=== PATIENT | female | born 1965 | race Caucasian/White ===

== ENCOUNTER 2017-07-04 12:55 | Outpatient (CLI) | payer OTHER | END 2017-07-04 12:56 | disposition home or self-care (01) | LOC: BICRAD 12:55 | PROVIDERS: ATTEND Internal Medicine | DX: Z02.71 Encounter for disability determination (principal); M17.12 Unilateral primary osteoarthritis, left knee; M43.16 Spondylolisthesis, lumbar region | CPT/HCPCS: 71046; 72100 ==

== ENCOUNTER 2017-09-11 19:10 | Emergency (ER) | payer OTHER | END 2017-09-11 21:01 | disposition home or self-care (01) | LOC: ERS 19:10 | DX: G56.03 Carpal tunnel syndrome, bilateral upper limbs (principal); I10 Essential (primary) hypertension; M19.90 Unspecified osteoarthritis, unspecified site; E78.5 Hyperlipidemia, unspecified; F17.210 Nicotine dependence, cigarettes, uncomplicated; Z79.899 Other long term (current) drug therapy | CPT/HCPCS: 36416; 99284 ==

== ENCOUNTER 2017-11-12 19:51 | Observation (INO) | payer OTHER, SELFPAY ==
[2017-11-12 20:23] LABS: #Eosinphils 0.2 thou/uL (0.0-0.7); #Lymphocytes 2.2 thou/uL (1.20-3.40); #Monocytes 0.4 thou/uL (0.11-0.59); #Neutrophils 5.8 thou/uL (1.40-6.50); %Basophils 0.5 % (0.0-1.0); %Eosinophils 2.2 % (0.0-10.0); %Lymphocytes 25.8 % (21.0-51.0); %Monocytes 4.7 % (0.0-10.0); %Neutrophils 66.7 % (42.0-75.0); Hemoglobin 15.2 g/dL (12.0-16.0); Mean Corpuscular HGB CONC 34.9 g/dL (32.0-36.0); Mean Corpuscular Hemoglobin 30.1 pg (27.0-31.0); Mean Corpuscular Volume 86.4 fl (81.0-99.0); Mean Platelet Volume 8.3 fL (7.4-10.4); Platelet Count 208 thou/uL (130-400); RBC Distribution Width 12.7 % (11.5-14.5); Red Blood Cell (RBC) Count 5.04 mill/uL (4.20-5.40); White Blood Cell (WBC) Count 8.7 thou/uL (4.8-10.8)
[2017-11-12 20:47] LABS: CKMB 1.9 ng/mL (0-6.6); Troponin I Less than 0.010 ng/mL (< 0.028)
[2017-11-12] MEDS ORDERED: Nitroglycerin 2% Ointment 1 INCH/1 GM Packet ONE (20:48)
[2017-11-12 20:59] LABS: ALT (SGPT) 27 U/L (8-55); AST (SGOT) 20 U/L (5-34); Albumin 4.7 g/dL (3.5-5.0); Alkaline Phosphatase 52 U/L (40-150); Anion Gap 12 mmol/L (10-20); BUN (Urea Nitrogen) 19 mg/dL (9.8-20.1); Bilirubin, Total 0.3 mg/dL (0.2-1.2); Calc. Creatinine Clearance 0 mL/min (70-130); Calcium 9.8 mg/dL (7.8-10.44); Carbon Dioxide 26 mmol/L (22-29); Chloride 105 mmol/L (98-107); Estimated GFR-MDRD 62; Globulin 2.6 g/dL (2.4-3.5); Glucose 132 mg/dL (70-105); Lipase 23 U/L (8-78); Magnesium 2.4 mg/dL (1.6-2.6); Potassium 3.6 mmol/L (3.5-5.1); Protein, Total 7.3 g/dL (6.0-8.3); Sodium 139 mmol/L (136-145)
--- NOTE | 2017-11-12 21:11 | RAD ---
AP CHEST: History: Chest pain, shortness of breath. Date: 11-12-17 Comparison: 02-21-16 FINDINGS: AP chest demonstrates some elevation of the left hemidiaphragm. The lungs are well aerated. No eviden ce of acute intrathoracic abnormality seen. No evidence of effusions, pneumonia, or pneumothorax seen . IMPRESSION: Elevated left hemidiaphragm, otherwise unremarkable AP chest. POS: [facility]
[2017-11-12] MEDS ORDERED: Azithromycin 250 MG TAB ONE ×2 (21:19→21:20)
[2017-11-12] MEDS ORDERED: methylPREDNISolone Sod Succ/PF 125 MG/2 ML VIAL ONE (21:20)
[2017-11-12 21:40] LABS: Bilirubin Negative (Negative); Blood, Urine Negative (Negative); Clarity CLEAR (Clear); Glucose, Urine (Dipstick) Negative (Negative); Leukocyte Negative (Negative); Nitrite Negative (Negative); Protein, Urine (Dipstick) Negative (Neg-Trace); Urobilinogen 0.2 mg/dL (0.2-1.0); pH, Urine 6.5 (5.0-9.0)
[2017-11-12 21:50] LABS: Hemoglobin A1c 5.5 % (4.0-6.0)
[2017-11-12 23:04] VITALS: BMI 41.8
[2017-11-12 23:41] LABS: Troponin I 0.012 ng/mL (< 0.028)
[2017-11-13] MEDS ORDERED: Acetaminophen 325 MG TAB PO PRN (02:09)
[2017-11-13 02:42] LABS: Troponin I Less than 0.010 ng/mL (< 0.028)
[2017-11-13 04:49] LABS: #Lymphocytes 0.9 thou/uL (1.20-3.40); #Monocytes 0.1 thou/uL (0.11-0.59); #Neutrophils 7.1 thou/uL (1.40-6.50); %Basophils 0.2 % (0.0-1.0); %Eosinophils 0.5 % (0.0-10.0); %Lymphocytes 10.5 % (21.0-51.0); %Monocytes 1.2 % (0.0-10.0); %Neutrophils 87.6 % (42.0-75.0); Hemoglobin 13.8 g/dL (12.0-16.0); Mean Corpuscular HGB CONC 34.8 g/dL (32.0-36.0); Mean Corpuscular Hemoglobin 30.3 pg (27.0-31.0); Mean Corpuscular Volume 87.1 fl (81.0-99.0); Mean Platelet Volume 8.8 fL (7.4-10.4); Platelet Count 196 thou/uL (130-400); RBC Distribution Width 12.7 % (11.5-14.5); Red Blood Cell (RBC) Count 4.54 mill/uL (4.20-5.40); White Blood Cell (WBC) Count 8.1 thou/uL (4.8-10.8)
--- NOTE | 2017-11-13 04:49 | HP ---
PRIMARY CARE PHYSICIAN: [facility]. HISTORY OF PRESENT ILLNESS: Patient is a very pleasant 52-year-old female with a past medical histor y of hypertension, hyperlipidemia, and smoking, who presents to the ER with complaints of chest pain. The patient states that she has been having this chest pain for the past few days on and off. Julio jennifer, today she started having worsening chest pain. She described it as like tightness around her ch est area. The patient denies any radiation to her upper extremities or neck area. The patient denie s any nausea, vomiting, or diaphoresis. The patient also denies any shortness of breath. The patien t also noticed that she has been having increased ankle swelling for this past few days. The patient states that she has been compliant with a low-salt diet. Denies any orthopnea; however, states that at times she is positive for PND. PAST MEDICAL HISTORY: 1. History of hypertension. 2. Hyperlipidemia. 3. Obesity. 4. Hypothyroidism. 5. Chronic obstructive pulmonary disease. PAST SURGICAL HISTORY: She has not had any surgeries. SOCIAL HISTORY: She smokes a pack and a half a day. No alcohol or drug use. FAMILY HISTORY: Father at the age of 54 with heart attack. Mother is doing pretty well. ALLERGIES: She has got no known allergies. MEDICATIONS: As the following: She takes albuterol 2 puffs q.4 hours p.r.n., Mobic 50 mg daily, met oprolol 25 mg daily, Norvasc 5 mg daily, QVAR 8.7 mg b.i.d., gabapentin 300 mg b.i.d., levothyroxine 25 mcg daily, lisinopril/hydrochlorothiazide 20/12.5 one p.o. daily, simvastatin 20 mg daily, and anahy tropium 2 inhalations daily. REVIEW OF SYSTEMS: A 12-point review of systems all negative except for the ones mentioned in the HP I. LABORATORY DATA: As the following, sodium of 139, potassium of 3.6, BUN of 19, creatinine 0.84. Tro ponin x3 are negative. BNP is 43.7. Hemoglobin A1c is 5.5. WBC of 8.7, hemoglobin of 14.2, hematoc rit of 43.6. EKG appears to be normal. Chest x-ray indicates elevated left hemidiaphragm, otherwise normal. PHYSICAL EXAMINATION: VITAL SIGNS: Vital signs are as following, 97.7, 62, 124/65, 20, 94% on room air, 172/77. GENERAL: The patient is awake, alert, oriented x3, does not appear in any distress. HEENT: Normocephalic, atraumatic. NECK: No lymphadenopathy noted. CARDIOVASCULAR: S1, S2 present. No murmurs, rubs, or gallops. LUNGS: Clear to auscultation. No rhonchi or wheezes noted. ABDOMEN: Obese, bowel sounds are present x2. No hepatomegaly or splenomegaly appreciated. EXTREMITIES: She does have mild 1+ lower extremity ankle edema. SKIN: No lesions or rashes noted. NEUROLOGIC: No focal deficits. The patient is awake, alert, and oriented. PSYCHIATRIC: Affect appears to be normal. ASSESSMENT AND PLAN: The patient is a very pleasant 52-year-old female who presents to the hospital for chest pain. 1. Chest pain, rule out acute coronary syndrome. The patient has several risk factors including fam jeremy, obesity, hypertension, and smoking history. We will do a stress test in the morning. Troponins x3 are negative. BNP is normal. Stress test is negative. May discharge the patient home. We will check a lipid panel, hemoglobin A1c was 5.5. 2. Hypertension. We will continue the patient's home medications. May need titrating blood pressur e medications up. 3. Smoking cessation. Patient educated on stopping to smoke. Patient states that she is not ready yet. She refused to wear a patch while in the hospital. 4. Hyperlipidemia. We will continue the patient's home medications and will check a lipid panel in the morning.
[2017-11-13 05:06] LABS: Anion Gap 12 mmol/L (10-20); BUN (Urea Nitrogen) 18 mg/dL (9.8-20.1); Calc. Creatinine Clearance 132 mL/min (70-130); Calcium 9.4 mg/dL (7.8-10.44); Carbon Dioxide 23 mmol/L (22-29); Cardiac Risk 3.8 (Less than 4.5); Chloride 109 mmol/L (98-107); Cholesterol 167 mg/dl (< 200 Desired); Estimated GFR-MDRD 69; Glucose 175 mg/dL (70-105); HDL Cholesterol 44 mg/dL (>60 Neg Risk); LDL Cholesterol, Calculated 107 mg/dL; Potassium 3.8 mmol/L (3.5-5.1); Sodium 140 mmol/L (136-145); Triglycerides 82 mg/dL (Less than 150)
[2017-11-13] MEDS: Ipratropium Bromide 2.5 ml Neb NEB SCH ×4 (07:35→23:39)
[2017-11-13] MEDS: Mometasone 100 MCG HFA INHALER INH SCH ×2 (07:38→19:55)
[2017-11-13] MEDS: Aspirin 325 MG TAB PO SCH (08:54)
[2017-11-13] MEDS: Enoxaparin Sodium 40 MG/0.4 ML SYRINGE SC SCH (08:54)
[2017-11-13] MEDS: Amlodipine 5 MG TAB PO SCH (08:54)
[2017-11-13] MEDS: Lisinopril/Hydrochlorothiazide 20 mg/12.5 mg Tablet PO SCH (08:54)
[2017-11-13] MEDS: Gabapentin 300 MG CAP PO SCH ×2 (08:54→20:59)
[2017-11-13] MEDS: Levothyroxine Sodium 25 MCG TAB PO SCH (08:55)
[2017-11-13] MEDS ORDERED: Regadenoson 0.4 MG/5 ML SYRINGE ONE (14:01)
[2017-11-13] MEDS ORDERED: Simvastatin 20 MG TAB PO SCH (21:00)
[2017-11-14] MEDS: Ipratropium Bromide 2.5 ml Neb NEB SCH (07:17)
[2017-11-14] MEDS: Mometasone 100 MCG HFA INHALER INH SCH (07:19)
[2017-11-14] MEDS: Enoxaparin Sodium 40 MG/0.4 ML SYRINGE SC SCH (08:10)
[2017-11-14] MEDS: Gabapentin 300 MG CAP PO SCH (08:10)
[2017-11-14] MEDS: Lisinopril/Hydrochlorothiazide 20 mg/12.5 mg Tablet PO SCH (08:10)
[2017-11-14] MEDS: Levothyroxine Sodium 25 MCG TAB PO SCH (08:10)
[2017-11-14] MEDS: Amlodipine 5 MG TAB PO SCH (08:11)
[2017-11-14] MEDS: Aspirin 325 MG TAB PO SCH (08:11)
--- NOTE | 2017-11-14 11:36 | NM ---
MYOCARDIAL PERFUSION EVALUATION: INDICATION: Chest pain, 52-year-old female. Please reference the stress EKG portion of this exam through the division of cardiology for further d etails. FINDINGS: There is no significant fixed or reversible defect of the left ventricular arita. A mild degree of ph ysiologic apical thinning is suggested. Gated imaging reveals appropriate wall motion and contractili ty with a normal LVEF calculated above 70%. IMPRESSION: 1. No significant ischemia or scar. 2. Normal left ventricular systolic function. POS: [facility]
[2017-11-14 11:46] VITALS: BP 146/70; TEMP 97.8
--- NOTE | 2017-11-14 14:23 | DIS ---
CONDITION AT THE TIME OF DISCHARGE: Stable and improved. DISCHARGE DIAGNOSES: 1. Chest pain, likely gastroesophageal reflux disease. Noncardiac. ACS ruled out. 2. Hypertension. 3. Dyslipidemia. 4. Morbid obesity with BMI of 41.8. 5. Hypothyroidism. 6. Chronic obstructive pulmonary disease. 7. Tobacco abuse. DISCHARGE MEDICATIONS: Remain the same as admission medication. Please see admission H&P for furthe r details as follows; Spiriva, Zocor, Lopressor 25 b.i.d., lisinopril/hydrochlorothiazide 20/12.5 mg daily, Synthroid 25 mcg daily, Neurontin 300 b.i.d. Qvar b.i.d., amlodipine 5 mg daily, albuterol as needed. PROCEDURES DONE IN THE HOSPITAL: Nuclear medicine stress test, which is unremarkable. There is no s car or active ischemia. Normal left ventricular systolic function at 70%. CONSULTATIONS INHOUSE: None. PRIMARY CARE PHYSICIAN: Dr. Ra Aguilera HISTORY OF PRESENT ILLNESS: Ms. Vee is a 52-year-old female with past medical history of hypertens ion, dyslipidemia, continued tobacco abuse, COPD, who came to the emergency room with complaints of c hest pain. According to her daughter her blood pressure was quite elevated upon presentation for the EMS. Initial assessment included a 12-lead EKG and cardiac enzymes for chest pain workup and it was unremarkable. Her chest x-ray showed elevated left hemidiaphragm, otherwise normal. She was admitt ed for further risk stratification. Please see admission history and physical for further details. HOSPITAL COURSE: The patient underwent a 2-day stress test because of the body habitus and it was ne gative. She remained hemodynamically stable and her blood pressure was under good control. On the day of discharge, she is still having some issues with on and off chest pain, but I have reass ured her that this is a noncardiac pain. She might benefit from outpatient gastroenterology workup f or possible acid reflux and esophagitis and gastritis. Strongly advised for tobacco cessation is pro vided and for lifestyle modification and she verbalized understanding. She is encouraged to monitor blood pressure at home. She was seen and examined prior to discharge at this time. PHYSICAL EXAMINATION: VITAL SIGNS: Temperature 97.8, pulse of 61, respirations 18, saturating 94% on room air, blood press ure 146/70. GENERAL: No acute distress, awake, alert, oriented x3. Daughter is present in the room. CHEST: Clear to auscultation without any wheezing, rales or rhonchi. CARDIOVASCULAR: Rhythm is regular without any murmur, rubs or gallops. ABDOMEN: Obese, soft, nontender, nondistended. No epigastric tenderness, no right upper quadrant te nderness. Morbidly obese. EXTREMITIES: Free of any cyanosis, clubbing, or edema. LABORATORY DATA: Troponin negative x3. BNP normal. Lipid panel normal. Hemoglobin A1c 5.5. Urina lysis is unremarkable. CBC unremarkable. D-dimer less than 0.27. Serum chemistries unremarkable ex cept for blood sugar of 175. She is instructed to follow up with primary care physician in 5-7 days. All questions were answered and discharge plan was discussed with the patient and her daughter and they verbalized understanding.
== END 2017-11-14 14:00 | disposition home or self-care (01) ==
LOC: ERS 19:51 → 2SW 21:52
PROVIDERS: ADMIT Internal Medicine; ATTEND Internal Medicine
DX: R07.89 Other chest pain (principal); I10 Essential (primary) hypertension; E78.5 Hyperlipidemia, unspecified; E66.01 Morbid (severe) obesity due to excess calories; E03.9 Hypothyroidism, unspecified; J44.9 Chronic obstructive pulmonary disease, unspecified; F17.210 Nicotine dependence, cigarettes, uncomplicated; Z68.42 Body mass index [BMI] 45.0-49.9, adult; Z79.899 Other long term (current) drug therapy
CPT/HCPCS: 36415; 71045; 78452; 80048; 80053; 80061; 81003; 82553; 83036; 83690; 83735; 83880; 84484; 85025; 85379; 93005; 93017; 94760; 96372; 96374; A4216; A9500; G0378; J1650; J2785; J2930; J7620; J7644

== ENCOUNTER 2018-01-13 19:56 | Emergency (ER) | payer SELFPAY ==
[2018-01-13] MEDS ORDERED: Albuterol Sulfate 2.5 mg/0.5 ml Neb ONE ×2 (20:44)
[2018-01-13] MEDS ORDERED: Albuterol Sulfate 2.5 mg/3 ml Neb ONE ×2 (20:44)
--- NOTE | 2018-01-13 21:01 | RAD ---
TWO VIEW CHEST: 01/13/18 HISTORY: Shortness of breath. Dyspnea. COMPARISON: 12/05/16. Lungs appear clear. No infiltrate seen. Heart and mediastinum unremarkable. IMPRESSION: No acute process. POS: [facility]
[2018-01-13 21:12] LABS: CKMB 1.8 ng/mL (0-6.6); Troponin I Less than 0.010 ng/mL (< 0.028)
[2018-01-13] MEDS ORDERED: methylPREDNISolone Sod Succ/PF 125 MG/2 ML VIAL ONE (21:32)
[2018-01-13 21:44] LABS: Bilirubin Negative (Negative); Blood, Urine Negative (Negative); Clarity CLEAR (Clear); Glucose, Urine (Dipstick) Negative (Negative); Leukocyte Negative (Negative); Nitrite Negative (Negative); Protein, Urine (Dipstick) Negative (Neg-Trace); Specific Gravity, Urine 1.003 (1.002-1.036); Urobilinogen 0.2 mg/dL (0.2-1.0); pH, Urine 6.5 (5.0-9.0)
--- NOTE | 2018-01-13 22:15 | ULT ---
BILATERAL LOWER EXTREMITY VENOUS DUPLEX EXAM: 01/13/18 INDICATION: Bilateral lower extremity pain and edema. Shortness of breath. Deep veins of both lower extremities evaluated with color doppler with spectral analysis and compress ion. Deep veins of both lower extremities show normal blood flow and compression. No evidence of DVT identified in either leg. IMPRESSION: Negative bilateral lower extremity venous duplex study. POS: [facility]
[2018-01-13 22:20] LABS: #Eosinphils 0.2 thou/uL (0.0-0.7); #Monocytes 0.5 thou/uL (0.11-0.59); #Neutrophils 5.2 thou/uL (1.40-6.50); %Basophils 0.3 % (0.0-1.0); %Eosinophils 1.9 % (0.0-10.0); %Lymphocytes 33.5 % (21.0-51.0); %Monocytes 5.8 % (0.0-10.0); %Neutrophils 58.5 % (42.0-75.0); Hemoglobin 14.5 g/dL (12.0-16.0); Mean Corpuscular HGB CONC 35.2 g/dL (32.0-36.0); Mean Corpuscular Hemoglobin 30.2 pg (27.0-31.0); Mean Platelet Volume 8.4 fL (7.4-10.4); Platelet Count 183 thou/uL (130-400); RBC Distribution Width 12.5 % (11.5-14.5); Red Blood Cell (RBC) Count 4.79 mill/uL (4.20-5.40); White Blood Cell (WBC) Count 8.9 thou/uL (4.8-10.8)
[2018-01-13 22:31] LABS: Albumin 4.8 g/dL (3.5-5.0)
[2018-01-13 22:32] LABS: Chloride 105 mmol/L (98-107); Potassium 3.5 mmol/L (3.5-5.1); Sodium 144 mmol/L (136-145)
[2018-01-13 22:33] LABS: Calcium 9.4 mg/dL (7.8-10.44); Glucose 158 mg/dL (70-105)
[2018-01-13 22:34] LABS: Globulin 2.6 g/dL (2.4-3.5); Protein, Total 7.4 g/dL (6.0-8.3)
[2018-01-13 22:35] LABS: Anion Gap 17 mmol/L (10-20); Bilirubin, Total 0.3 mg/dL (0.2-1.2); Carbon Dioxide 26 mmol/L (22-29)
[2018-01-13 22:36] LABS: Alkaline Phosphatase 50 U/L (40-150)
[2018-01-13 22:37] LABS: Calc. Creatinine Clearance 0 mL/min (70-130); Estimated GFR-MDRD 54
[2018-01-13 22:38] LABS: BUN (Urea Nitrogen) 14 mg/dL (9.8-20.1)
[2018-01-13 22:39] LABS: ALT (SGPT) 22 U/L (8-55); AST (SGOT) 19 U/L (5-34)
[2018-01-13] MEDS ORDERED: Acetaminophen 500 MG TAB ONE (23:41)
== END 2018-01-14 00:59 | disposition home or self-care (01) ==
LOC: ERS 19:56
DX: J44.1 Chronic obstructive pulmonary disease with (acute) exacerbation (principal); Z71.6 Tobacco abuse counseling; J44.9 Chronic obstructive pulmonary disease, unspecified; E78.5 Hyperlipidemia, unspecified; I10 Essential (primary) hypertension; E03.9 Hypothyroidism, unspecified; F17.210 Nicotine dependence, cigarettes, uncomplicated; Z79.899 Other long term (current) drug therapy
CPT/HCPCS: 36415; 71046; 80053; 81003; 82553; 83880; 84484; 85025; 93005; 93970; 94640; 96374; 99406; J2930; J7611; J7620

== ENCOUNTER 2018-01-28 20:10 | Emergency (ER) | payer SELFPAY ==
[2018-01-28 21:05] LABS: #Eosinphils 0.1 thou/uL (0.0-0.7); #Lymphocytes 2.4 thou/uL (1.20-3.40); #Monocytes 0.6 thou/uL (0.11-0.59); #Neutrophils 9.2 thou/uL (1.40-6.50); %Basophils 0.3 % (0.0-1.0); %Eosinophils 1.2 % (0.0-10.0); %Lymphocytes 19.6 % (21.0-51.0); %Monocytes 4.9 % (0.0-10.0); %Neutrophils 73.9 % (42.0-75.0); Hemoglobin 15.6 g/dL (12.0-16.0); Mean Corpuscular HGB CONC 36.3 g/dL (32.0-36.0); Mean Corpuscular Hemoglobin 31.4 pg (27.0-31.0); Mean Corpuscular Volume 86.6 fL (78.0-98.0); Mean Platelet Volume 8.6 fL (7.4-10.4); Platelet Count 188 thou/uL (130-400); Red Blood Cell (RBC) Count 4.96 mill/uL (4.20-5.40); White Blood Cell (WBC) Count 12.4 thou/uL (4.8-10.8)
[2018-01-28 21:23] LABS: Anion Gap 16 mmol/L (10-20); BUN (Urea Nitrogen) 14 mg/dL (9.8-20.1); CK (CPK) 97 U/L (29-168); Calc. Creatinine Clearance 0 mL/min (70-130); Calcium 10.2 mg/dL (7.8-10.44); Carbon Dioxide 26 mmol/L (22-29); Chloride 99 mmol/L (98-107); Estimated GFR-MDRD 55; Glucose 96 mg/dL (70-105); Lipase 22 U/L (8-78); Potassium 3.3 mmol/L (3.5-5.1); Sodium 138 mmol/L (136-145)
[2018-01-28 21:26] LABS: Troponin I Less than 0.010 ng/mL (< 0.028)
--- NOTE | 2018-01-28 21:26 | RAD ---
FRONTAL VIEW CHEST: INDICATIONS: Short of breath. Chest pain. COMPARISON: 01/13/2018 FINDINGS: The lungs are clear. The cardiac silhouette is accentuated by the portable technique. No effusion o r discrete pneumothorax. IMPRESSION: No focal consolidation. POS: [facility]
[2018-01-28 21:34] LABS: INR-International Normal Ratio 0.9; Prothrombin Time 12.7 SEC (12.0-14.7)
[2018-01-28 21:35] LABS: D-Dimer Test 0.33 *mcg/mL (0.27-0.43)
[2018-01-28] MEDS ORDERED: Lidocaine Viscous Sol 2% 15 ml UD Cup ONE (21:41)
[2018-01-28] MEDS ORDERED: Mag-Al 1200 mg/1200 mg/30 ML UDCUP ONE (21:41)
[2018-01-28 21:46] LABS: ALT (SGPT) 29 U/L (8-55); AST (SGOT) 21 U/L (5-34); Albumin 4.9 g/dL (3.5-5.0); Alkaline Phosphatase 56 U/L (40-150); Anion Gap 16 mmol/L (10-20); BUN (Urea Nitrogen) 14 mg/dL (9.8-20.1); Bilirubin, Total 0.7 mg/dL (0.2-1.2); Calc. Creatinine Clearance 0 mL/min (70-130); Calcium 10.3 mg/dL (7.8-10.44); Carbon Dioxide 26 mmol/L (22-29); Chloride 100 mmol/L (98-107); Estimated GFR-MDRD 54; Globulin 2.4 g/dL (2.4-3.5); Glucose 98 mg/dL (70-105); Potassium 3.4 mmol/L (3.5-5.1); Protein, Total 7.3 g/dL (6.0-8.3); Sodium 139 mmol/L (136-145)
[2018-01-28] MEDS ORDERED: Pantoprazole 40 MG VIAL ONE (23:03)
[2018-01-28] MEDS ORDERED: Acetaminophen 500 MG TAB ONE (23:08)
[2018-01-28 23:43] LABS: Troponin I Less than 0.010 ng/mL (< 0.028)
== END 2018-01-29 00:20 | disposition home or self-care (01) ==
LOC: ERS 20:10
DX: R06.02 Shortness of breath (principal); K21.9 Gastro-esophageal reflux disease without esophagitis; E78.5 Hyperlipidemia, unspecified; I10 Essential (primary) hypertension; M19.90 Unspecified osteoarthritis, unspecified site; E78.00 Pure hypercholesterolemia, unspecified; J44.9 Chronic obstructive pulmonary disease, unspecified; E03.9 Hypothyroidism, unspecified; F17.210 Nicotine dependence, cigarettes, uncomplicated; Z71.6 Tobacco abuse counseling; Z79.899 Other long term (current) drug therapy
CPT/HCPCS: 36415; 71045; 80048; 82550; 82553; 83690; 83880; 84484; 85025; 85379; 85610; 93005; 96374; 99406; C9113

== ENCOUNTER 2019-07-01 18:30 | Outpatient (CLI) | payer MEDICARE, MEDICAID | END 2019-07-01 18:31 | disposition home or self-care (01) | LOC: SLEEPLAB 18:30 | PROVIDERS: ATTEND Family Medicine | DX: G47.33 Obstructive sleep apnea (adult) (pediatric) (principal); J44.9 Chronic obstructive pulmonary disease, unspecified; I10 Essential (primary) hypertension; G47.10 Hypersomnia, unspecified; G47.00 Insomnia, unspecified | CPT/HCPCS: 95806 ==

== ENCOUNTER 2019-07-08 07:42 | Outpatient (CLI) | payer MEDICARE, MEDICAID ==
[2019-07-08] MEDS ORDERED: Regadenoson 0.4 MG/5 ML SYRINGE ONE (11:20)
--- NOTE | 2019-07-09 11:37 | NM ---
CARDIAC SPECT: CLINICAL HISTORY: 53-year-old female with chest pain, COPD, hypertension, and dyslipidemia. TECHNIQUE: A myocardial perfusion scan was performed using the single isotope two day protocol with 31 mCi techn etium-99m sestamibi injected intravenously for both stress and rest images. Pharmacologic stress with Lexiscan was monitored and interpreted by Dr. Lim. FINDINGS: There is a small fixed defect in the distal anteroseptal wall with normal contractility and wall tita on. This indicates a breast attenuation artifact rather than a scar. No reversible defects are seen. GATED SPECT LVEF: 62%. WALL MOTION EXAM: Normal. IMPRESSION: No evidence of reversible ischemia. POS: [facility]
== END 2019-07-08 07:43 | disposition home or self-care (01) ==
LOC: NM 07:42
PROVIDERS: ATTEND Family Medicine
DX: R07.9 Chest pain, unspecified (principal)
CPT/HCPCS: 78452; 93017; A9500; J2785

== ENCOUNTER 2019-08-04 20:30 | Outpatient (CLI) | payer MEDICARE, MEDICAID | END 2019-08-04 20:31 | disposition home or self-care (01) | LOC: SLEEPLAB 20:30 | PROVIDERS: ATTEND Family Medicine | DX: G47.33 Obstructive sleep apnea (adult) (pediatric) (principal); G47.10 Hypersomnia, unspecified; I10 Essential (primary) hypertension; G47.00 Insomnia, unspecified; F41.9 Anxiety disorder, unspecified; F32.9 Major depressive disorder, single episode, unspecified; I49.3 Ventricular premature depolarization | CPT/HCPCS: 95810 ==

== ENCOUNTER 2019-09-10 16:22 | Outpatient (CLI) | payer MEDICARE, MEDICAID ==
--- NOTE | 2019-09-10 16:38 | RAD ---
XR Chest Pa Lat STANDARD HISTORY: COPD exacerbation. Cough COMPARISON: 01/28/2018 FINDINGS: The heart size is normal. The lungs are well expanded without focal areas of consolidation, pneumothorax or pleural effusions. There are degenerative changes in the spine. IMPRESSION: No radiographic evidence of acute cardiopulmonary process.
== END 2019-09-10 16:23 | disposition home or self-care (01) ==
LOC: BICRAD 16:22
PROVIDERS: ATTEND Student in an Organized Health Care Education/Training Program
DX: J44.1 Chronic obstructive pulmonary disease with (acute) exacerbation (principal)
CPT/HCPCS: 71046

== ENCOUNTER 2021-02-12 09:16 | Emergency (ER) | payer OTHER, MEDICARE, MEDICAID ==
[2021-02-12] MEDS ORDERED: Lidocaine 1% w/Epinephrine 1:100K 20 ML VIAL ONE (11:08)
[2021-02-12] MEDS ORDERED: Boostrix 0.5 ML (Tdap) VIAL ONE (11:08)
== END 2021-02-12 12:18 | disposition home or self-care (01) ==
LOC: ERS 09:16
DX: S81.811A Laceration without foreign body, right lower leg, initial encounter (principal); S80.01XA Contusion of right knee, initial encounter; E78.5 Hyperlipidemia, unspecified; I10 Essential (primary) hypertension; J44.9 Chronic obstructive pulmonary disease, unspecified; E03.9 Hypothyroidism, unspecified; F17.210 Nicotine dependence, cigarettes, uncomplicated; M19.90 Unspecified osteoarthritis, unspecified site; Z79.899 Other long term (current) drug therapy; W01.0XXA Fall on same level from slipping, tripping and stumbling without subsequent striking against object, initial encounter
CPT/HCPCS: 12001; 90471; 90715; 99283

== ENCOUNTER 2021-08-02 14:02 | Outpatient (CLI) | payer MEDICARE, MEDICAID | END 2021-08-02 14:03 | disposition home or self-care (01) | LOC: BICMAMMO 14:02 | PROVIDERS: ATTEND Student in an Organized Health Care Education/Training Program | DX: Z12.31 Encounter for screening mammogram for malignant neoplasm of breast (principal) | CPT/HCPCS: 77063; 77067 ==

== ENCOUNTER 2022-04-03 17:38 | Emergency (ER) | payer OTHER, MEDICAID | END 2022-04-03 19:34 | disposition home or self-care (01) | LOC: ERS 17:38 | DX: R05.9 Cough, unspecified (principal); E78.5 Hyperlipidemia, unspecified; I10 Essential (primary) hypertension; J44.9 Chronic obstructive pulmonary disease, unspecified; E03.9 Hypothyroidism, unspecified; F17.210 Nicotine dependence, cigarettes, uncomplicated; Z79.899 Other long term (current) drug therapy | CPT/HCPCS: 71045 ==

== ENCOUNTER 2022-05-18 08:43 | Outpatient (CLI) | payer OTHER, MEDICAID | END 2022-05-18 08:44 | disposition home or self-care (01) | LOC: MRI 08:43 | PROVIDERS: ATTEND Student in an Organized Health Care Education/Training Program | DX: Z00.01 Encounter for general adult medical examination with abnormal findings (principal); Z12.2 Encounter for screening for malignant neoplasm of respiratory organs; M47.26 Other spondylosis with radiculopathy, lumbar region; M47.27 Other spondylosis with radiculopathy, lumbosacral region; M46.1 Sacroiliitis, not elsewhere classified; M43.17 Spondylolisthesis, lumbosacral region; M47.9 Spondylosis, unspecified; F17.210 Nicotine dependence, cigarettes, uncomplicated; M48.061 Spinal stenosis, lumbar region without neurogenic claudication; M48.07 Spinal stenosis, lumbosacral region | CPT/HCPCS: 71271; 72148 ==

== ENCOUNTER 2023-06-20 08:42 | Outpatient (CLI) | payer OTHER, MEDICAID ==
[2023-06-20] MEDS ORDERED: Iopamidol 370 76% 100 ML VIAL ONE (09:36)
== END 2023-06-20 08:43 | disposition home or self-care (01) ==
LOC: BICCT 08:42
PROVIDERS: ATTEND Student in an Organized Health Care Education/Training Program
DX: R10.31 Right lower quadrant pain (principal)
CPT/HCPCS: 74177; 82565

== ENCOUNTER 2023-08-01 11:23 | Outpatient (CLI) | payer OTHER, MEDICAID | END 2023-08-01 11:24 | disposition home or self-care (01) | LOC: BICRAD 11:23 | PROVIDERS: ATTEND Student in an Organized Health Care Education/Training Program | DX: J44.1 Chronic obstructive pulmonary disease with (acute) exacerbation (principal) | CPT/HCPCS: 71046 ==

== ENCOUNTER 2023-08-03 09:24 | Outpatient (CLI) | payer OTHER, MEDICAID | END 2023-08-03 09:25 | disposition home or self-care (01) | LOC: BICMAMMO 09:24 | PROVIDERS: ATTEND Student in an Organized Health Care Education/Training Program | DX: Z12.31 Encounter for screening mammogram for malignant neoplasm of breast (principal) | CPT/HCPCS: 77063; 77067 ==